=== PATIENT | female | born 1980 | race Caucasian/White ===

== ENCOUNTER 2018-11-13 09:46 | Emergency (ER) | payer OTHER ==
[~2018-11-13] VITALS: Wt 70.0 kg
[~2018-11-13 09:46] MED LIST: PREN-93 PO
[2018-11-13 09:51] VITALS: BP 140/81; PULSE 96; RESP 18
--- NOTE | 2018-11-13 12:25 | ERD ---
ER Documentation Chief Complaint Chief Complaint VAG BLEEDING SINCE THIS MORNING. , NO VOMITING OR DYSURIA HPI Patient is a 37-year-old female, G3, P2, who presents the ER for concerns of vaginal bleeding which started this morning. Patient was seen at the [facility] and advised to come to the ER for further work-up of her symptoms. Patient states she is only used 1 pad thus far. Patient reports bleeding only with wiping. Patient was seen at [facility] and brings previous beta- hCG levels. On 10-31-18, patient's beta hCG was noted to be 50 and on 11-05-18, beta-hCG was noted to be 357. Patient denies any lightheadedness or dizziness. Patient denies any dysuria, fainting, urgency or hematuria. She denies any fevers or chills. ROS All systems reviewed and are negative except as per history of present illness. Medications Home Meds Reported Medications Vit No.124/Iron/FA ( Vitamin Tablet) 1 Each Tablet, 1 EACH PO 04/17/15 Allergies Allergies: Coded Allergies: No Known Allergy (Unverified , 04/17/15) PMhx/Soc Medical and Surgical Hx: pt denies Medical Hx, pt denies Surgical Hx FmHx Family History: No diabetes Physical Exam Vitals Vital Signs Date Temp Pulse Resp B/P (MAP) Pulse Ox O2 O2 Flow FiO2 Time Delivery Rate 11/13/18 98.1 96 18 140/81 100 09:51 (100) Physical Exam GENERAL: Well-developed, well-nourished female. Appears in no acute distress. Speaking in full sentences. HEAD: Normocephalic, atraumatic. EYES: Pupils are equally reactive bilaterally. EOMs grossly intact. No conjunctival erythema. NECK: Supple. No meningismus. Normal range of motion of the neck. LUNG: Clear to auscultation bilaterally. No rhonchi, wheezing, rales or coarse breath sounds. HEART: Regular rate and rhythm. No murmurs, rubs or gallops. ABDOMEN: No scars, ecchymosis or rashes noted. Soft, nontender, and nondistended. Positive bowel sounds in all four quadrants. No rebound tenderness, no guarding. (-) McBurney's point tenderness. No CVA tenderness. EXTREMITIES: Equal pulses bilaterally. No peripheral clubbing, cyanosis or edema. No unilateral leg swelling. NEUROLOGIC: Alert and oriented. Moving all four extremities without any difficulty. Normal speech. Steady gait. SKIN: Normal color. Warm and dry. No rashes or lesions. Result Diagram: 11/13/18 1021 Results 24 hrs Laboratory Tests Test 11/13/18 10:21 11/13/18 10:22 White Blood Count 9.8 10^3/ul Red Blood Count 3.91 10^6/ul Hemoglobin 12.2 g/dl Hematocrit 36.3 % Mean Corpuscular Volume 92.8 fl Mean Corpuscular Hemoglobin 31.2 pg Mean Corpuscular Hemoglobin Concent 33.6 g/dl Red Cell Distribution Width 13.4 % Platelet Count 272 10^3/UL Mean Platelet Volume 9.6 fl Immature Granulocytes % 0.300 % Neutrophils % 74.5 % Lymphocytes % 20.3 % Monocytes % 4.2 % Eosinophils % 0.4 % Basophils % 0.3 % Nucleated Red Blood Cells % 0.0 /100WBC Immature Granulocytes # 0.030 10^3/ul Neutrophils # 7.3 10^3/ul Lymphocytes # 2.0 10^3/ul Monocytes # 0.4 10^3/ul Eosinophils # 0.0 10^3/ul Basophils # 0.0 10^3/ul Nucleated Red Blood Cells # 0.0 10^3/ul Beta HCG, Quantitative 63.0 mIU/ml Urine Color YELLOW Urine Clarity CLEAR Urine pH 8.0 Urine Specific [place] 1.010 Urine Ketones NEGATIVE mg/dL Urine Nitrite NEGATIVE mg/dL Urine Bilirubin NEGATIVE mg/dL Urine Urobilinogen NEGATIVE mg/dL Urine Leukocyte Esterase NEGATIVE Abundio/ul Urine Microscopic RBC > 182 /HPF Urine Microscopic WBC 8 /HPF Urine Squamous Epithelial Cells FEW /HPF Urine Calcium Oxalate Crystals MANY /HPF Urine Bacteria FEW /HPF Urine Mucus FEW /HPF Urine Hemoglobin 3+ mg/dL Urine Glucose NEGATIVE mg/dL Urine Total Protein NEGATIVE mg/dl Procedures/MDM ED COURSE: The patient was stable throughout ED course. I kept the patient and/or family informed of laboratory and diagnostic imaging results throughout the ED course. DIAGNOSTIC IMAGING: Read by radiologist. Patient: ADALID LOPEZ : 1980 Age: 37 Sex: F MR #: [id number] DOS: 11/13/18 1019 Ordering MD: MOUNIKA WOOD PA-C Location: [facility] Room/Bed: PROCEDURE: US Pelvis. CLINICAL INDICATION: vaginal bleeding TECHNIQUE: Multiple sonographic images of the pelvis were obtained utilizing a transabdominal technique. The images were reviewed on a PACS workstation. COMPARISON: None. FINDINGS: The uterus is enlarged in size and demonstrates a normal appearance of the kaitlin metrium. The uterus measures 12.3 x 4.9 x 6.7 cm in size. The endometrial stripe is homogeneous in appearance and has the thickness of 14 mm. No intrauterine gestation is noted. The ovaries are normal in size and echogenicity. Normal Doppler flow is identified in both ovaries. The right ovary measures 2.0 x 1.2 cm. The left ovary measures 2.9 x 1.4 x 2.6 cm. There is a 1.2 cm simple cyst. No free fluid is present within the pelvis.. RPTAT: AA IMPRESSION: No intrauterine gestation visualized. Differential diagnosis includes early , missed or ectopic . Follow-up ultrasound and HCG levels is recommended. .Robson Santillan MD, MD Date Time Electronically viewed and signed by .Robson Santillan MD, MD on 11/13/2018 11:41 .S/ CC: MOUNIKA WOOD PA-C [id number] MEDICAL DECISION MAKING: This is a 37-year-old female, G3, P2, presents the ER for concerns of vaginal bleeding that started this morning. Vital signs were reviewed. Patient was afe brile. Patient was hemodynamically stable. She brings in previous labs from her [facility]. Patient's beta-hCG was noted to be 50 on 10-31-18 and 357 on 11-05-18. Today, patient's beta-hCG was noted to be 63. CBC showed no evidence of severe anemia. Patient's blood type was noted to be O+, no indication for RhoGam at this time. Pelvic ultrasound showed no intrauterine gestation. Upon discussing lab findings as well as ultrasound findings with the patient, patient states that she did pass some tissue while using the restroom. Given this history as well downtrending of patient's beta-hCG, I do feel that patient likely is having a miscarriage. Patient was advised to follow-up with her [facility]ING SERVICES [facility]OCI[facility]. Copy follow-up blood work and imaging studies obtained today was given. Low suspicion for subchorionic hematoma, incomplete , placental abruption, UTI, pyelonephritis, uterine rupture. DISCHARGE: At this time, patient is stable for discharge and outpatient management. I had a conversation at length with the patient about the concerns of vaginal bleeding during the 1st trimester of . Patient and/or family understands that her vaginal bleeding can be a normal finding or a sign of miscarriage. I have instructed the patient to follow-up with her OBGYN in 1-2 days for further monitoring including a repeat b-HCG level. I have instructed the patient to promptly return to the ER at any time for any new or worsening symptoms including increased pain, nausea, vomiting, continued bleeding, weakness, syncope or fever. The patient and/or family expressed understanding of and agreement with this plan. All questions were answered. Home care instructions were provided. Disclaimer: Inadvertent spelling and grammatical errors are likely due to EHR/dictation software use and do not reflect on the overall quality of patient care. Also, please note that the electronic time recorded on this note does not necessarily reflect the actual time of the patient encounter. Departure Diagnosis: Primary Impression: Vaginal bleeding in patient at less than 20 weeks ges... Additional Impression: Miscarriage Condition: Fair Patient Instructions: Bleeding During Early Referrals: HA BAKER (PCP) Additional Instructions: Llame al doctor EARLE y julito odell DIONNA PARA DENTRO DE 1-2 HODGES.Dgale a la secretaria que nosotros le instruimos hacer esta dionna.Avise o llame si olvera condic in se empeora antes de la dionna. Regresa aqui si peor o no mejor. MOUNIKA WOOD PA-C Nov 13, 2018 12:25
== END 2018-11-13 12:25 | disposition home or self-care (01) ==
LOC: FTE 09:46
DX: O03.9 Complete or unspecified spontaneous abortion without complication (principal)
CPT/HCPCS: 36415; 76801; 81001; 84702; 85025; 86900; 86901; Z7502

== ENCOUNTER 2019-01-13 15:27 | Inpatient (IN) | payer OTHER ==
[~2019-01-13] VITALS: Ht 160 cm; Wt 73.4 kg
[~2019-01-13 15:27] MED LIST changes: +HYDR-3601 PO
[2019-01-13 15:29] VITALS: Ht 160 cm; Wt 73.4 kg
[2019-01-13] MEDS ORDERED: ACETAMINOPHEN 500 MG TAB PO STA (16:08)
--- NOTE | 2019-01-13 16:10 | ERD ---
ER Documentation Chief Complaint Chief Complaint PT reports RLQ pain since 4am with loss of appetite HPI History and physical exam and plan of care discussion performed via alarm operator services This is a 38-year-old female patient who presents to emergency room with complaint of sudden onset of right lower quadrant pain starting approximately 4:00 this morning. Patient denies fevers, no nausea, no vomiting, + decreased appetite. Patient states she started her menstrual period 4 days ago. No chronic medical problems. ROS All systems reviewed and are negative except as per history of present illness. Medications Home Meds Reported Medications Vit No.124/Iron/FA ( Vitamin Tablet) 1 Each Tablet, 1 EACH PO 04/17/15 Allergies Allergies: Coded Allergies: No Known Allergy (Unverified , 04/17/15) PMhx/Soc Medical and Surgical Hx: pt denies Medical Hx, pt denies Surgical Hx Hx Alcohol Use: No Hx Substance Use: No Hx Tobacco Use: No Smoking Status: Never smoker Physical Exam Vitals Vital Signs Date Temp Pulse Resp B/P (MAP) Pulse Ox O2 O2 Flow FiO2 Time Delivery Rate 01/13/19 99.1 62 20 165/82 100 15:29 (109) Physical Exam Const: No acute distress Head: Atraumatic Eyes: Normal Conjunctiva, PERRL ENT: Normal External Ears, Nose and Mouth. Pharynx pink, moist, no lesions, no exudate. Neck: Full range of motion. No meningismus. No lymphadenopathy Resp: Clear to auscultation bilaterally, no wheezing, no rhonchi, no rales Cardio: Regular rate and rhythm, no murmurs Abd: Soft, non distended. Normal bowel sounds. +Rebound tenderness RLQ Skin: No petechiae or rashes Back: No midline or flank tenderness, no CVT Ext: No cyanosis, or edema Neur: Awake and alert, clear speech, steady gait Psych: Normal Mood and Affect Result Diagram: 01/13/19 1624 01/13/19 1624 Results 24 hrs Laboratory Tests Test 01/13/19 16:24 White Blood Count 10.3 10^3/ul Red Blood Count 3.70 10^6/ul Hemoglobin 11.4 g/dl Hematocrit 34.3 % Mean Corpuscular Volume 92.7 fl Mean Corpuscular Hemoglobin 30.8 pg Mean Corpuscular Hemoglobin Concent 33.2 g/dl Red Cell Distribution Width 13.1 % Platelet Count 241 10^3/UL Mean Platelet Volume 9.6 fl Immature Granulocytes % 0.100 % Neutrophils % 60.4 % Lymphocytes % 32.8 % Monocytes % 5.0 % Eosinophils % 1.3 % Basophils % 0.4 % Nucleated Red Blood Cells % 0.0 /100WBC Immature Granulocytes # 0.010 10^3/ul Neutrophils # 6.2 10^3/ul Lymphocytes # 3.4 10^3/ul Monocytes # 0.5 10^3/ul Eosinophils # 0.1 10^3/ul Basophils # 0.0 10^3/ul Nucleated Red Blood Cells # 0.0 10^3/ul Urine Color STRAW Urine Clarity CLEAR Urine pH 6.0 Urine Specific [place] 1.010 Urine Ketones NEGATIVE mg/dL Urine Nitrite NEGATIVE mg/dL Urine Bilirubin NEGATIVE mg/dL Urine Urobilinogen NEGATIVE mg/dL Urine Leukocyte Esterase NEGATIVE Abundio/ul Urine Microscopic RBC 0 /HPF Urine Microscopic WBC 1 /HPF Urine Hemoglobin 3+ mg/dL Urine Glucose NEGATIVE mg/dL Urine Total Protein NEGATIVE mg/dl Urine Test NEGATIVE Sodium Level 141 mmol/L Potassium Level 3.7 mmol/L Chloride Level 102 mmol/L Carbon Dioxide Level 31 mmol/L Anion Gap 8 Blood Urea Nitrogen 13 mg/dl Creatinine 0.77 mg/dl Est Glomerular Filtrat Rate mL/min > 60 mL/min Glucose Level 95 mg/dl Calcium Level 9.4 mg/dl Total Bilirubin 0.4 mg/dl Direct Bilirubin 0.00 mg/dl Indirect Bilirubin 0.4 mg/dl Aspartate Amino Transf (AST/SGOT) 21 IU/L Alanine Aminotransferase (ALT/SGPT) 18 IU/L Alkaline Phosphatase 86 IU/L Total Protein 7.4 g/dl Albumin 4.2 g/dl Globulin 3.20 g/dl Albumin/Globulin Ratio 1.31 Lipase 64 U/L Current Medications Medications Dose Sig/Yasmine Start Time Status Last (Trade) Ordered Route PRN Stop Time Admin Dose Reason Admin 1,000 mg ONCE STAT 01/13/19 DC 01/13/19 Acetaminophen PO 16:08 01/13/19 16:25 (Tylenol 16:10 Tab) IV Flush 10 ml STK-MED 01/13/19 DC (NS 10 ml) ONCE .ROUTE 18:20 01/13/19 18:21 Sodium 100 ml @ ud STK-MED 01/13/19 DC Chloride ONCE .ROUTE 18:20 01/13/19 18:21 Iohexol 150 ml STK-MED 01/13/19 DC (Omnipaque ONCE .ROUTE 18:20 01/13/19 300mg/ ml) 18:21 Procedures/MDM PROCEDURES/MDM DIAGNOSTIC IMAGING: Read by radiologist. CT ABD/PELVIS IMPRESSION: 1. NO EVIDENCE OF BOWEL OBSTRUCTION. THE APPENDIX IS MILDLY PROMINENT WITH QUESTIONABLE ADJACENT FATTY STRANDING. FINDINGS MAY REPRESENT EARLY OR MILD APPENDICITIS. CORRELATE WITH CLINICAL FINDINGS. 2. No evidence of bowel obstruction. 3. Fat-containing a umbilical hernia. 4. Fluid within the endometrial canal and cervix, which can be physiologic within normal limits. No significant free fluid. No significant pelvic lymphadenopathy. No gross CT evidence of gross adnexal masses or torsion. LAB INTERPRETATION: No leukocytosis, no anemia, no electrolyte imbalance, normal kidney function, no hyper or hypoglycemia, no transaminitis, no pancreatitis. Urine without leukocyte esterase or nitrites. +hemoglobin- pt is on menstrual period -Medications: Tylenol Patient tolerated medication well with no adverse reactions. Patient reported improvement in pain. MDM: This is a 38-year-old female patient who presents emergency room with complaint of right lower quadrant tenderness since this morning, CT scan suggestive of appendicitis. Case discussed with Dr. Rosenbaum who evaluated patient at bedside and will assume care of patient for admission and surgical consult. DISPOSITION and PLAN: Admit for treatment and surgical consult Departure Diagnosis: Primary Impression: Appendicitis Appendicitis type: acute appendicitis Condition: Stable WALTER PRIETO NP Jan 13, 2019 16:10
[2019-01-13] MEDS ORDERED: IOHEXOL 300MG/ML 150 ML BTL ONE (18:20)
[2019-01-13] MEDS ORDERED: SOD CHLORIDE 0.9% 100 ML ONE (18:20)
[2019-01-13] MEDS ORDERED: SOD CHLORIDE 0.9% 1,000 ML IV STA (19:58)
[2019-01-13] MEDS ORDERED: PIPER-TAZO 3.375 GM IV (PMX) 100 ML IVPB ONE (20:00)
--- NOTE | 2019-01-13 20:39 | EN ---
Date/Time of Note Date/Time of Note DATE: 01/13/19 TIME: 20:37 ER Progress Note The patient was signed out to me by Dr Rodriguez at 8p, who already notified the three dimensional art instructor surgeon Dr Duenas because she has acute appendicitis. We are waiting for [facility] to authorize the admission May[facility] authorized the admission I discussed the findings with the patient. I notified the patient with Dr. Ruiz at 8:30p via [employer], who was made aware of the lab, the treatment, the patient condition. The patient is admitted to [facility] Disclaimer: Inadvertent spelling and grammatical errors are likely due to EHR/dictation software use and do not reflect on the overall quality of patient care. Also, please note that the electronic time recorded on this note does not necessarily reflect the actual time of the patient encounter. LENARD QURESHI MD Jan 13, 2019 20:39
[2019-01-13] MEDS ORDERED: ONDANSETRON 4 MG INJ IV PRN (21:00)
[2019-01-13] MEDS ORDERED: DOCUSATE SODIUM 100 MG CAP PO PRN (21:00)
[2019-01-13] MEDS ORDERED: ACETAMINOPHEN 325 MG TAB PO PRN (21:00)
[2019-01-13] MEDS ORDERED: NACL 0.9% 3 ML SYG IV SCH (21:00)
[2019-01-13] MEDS: D5-NS + KCL 20 MEQ 1,000 ML IV SCH (21:39)
[2019-01-13] MEDS: FAMOTIDINE 20 MG INJ IV SCH (21:39)
[2019-01-13 22:12] VITALS: BP 139/75; PULSE 57; RESP 17
[2019-01-14] VITALS (12 sets, daily range): BP systolic 108–145; BP diastolic 68–86; PULSE 58–84; RESP 12–20
[2019-01-14] MEDS: D5-NS + KCL 20 MEQ 1,000 ML IV SCH ×2 (05:31→17:00)
[2019-01-14] MEDS ORDERED: ACETAMINOPHEN 1000MG/100ML IV 100 ML IVPB PRN (08:30)
[2019-01-14] MEDS: FAMOTIDINE 20 MG INJ IV SCH ×2 (10:46→21:44)
--- NOTE | 2019-01-14 12:47 | CONS ---
Assessment/Plan Assessment/Plan Hospital Course (Demo Recall) 1. Abdominal pain with possible early appendicitis: -surgery offered to patient, she will discuss with family and give us her decision -abx -pain mgt -npo 2. Ventral hermia: asymptomatic -monitor -sx intervention can be considered if becomes symptomatice 3. Overweight: bmi 29 -diet and exercise optimization -encourage weight loss Thank you. Patient seen and examined in collaboration with Dr. Dale Duenas. Consultation Date/Type/Reason Admit Date/Time Jan 13, 2019 at 20:40 Date of Consultation: Jan 14, 2019 Type of Consult surgical Reason for Consultation abd pain, appendicitis Requesting Provider: A Date/Time of Note DATE: 01/14/19 TIME: 12:37 Hx of Present Illness Tasia Swain is a 38 yo woman without significant pmh who presented with abdominal pain. Pain is predominantly in the right lower quadrant, strong and persistent in nature. She denies associated fevers, chills, congested cough, cp, palpitations, nausea, vomiting, diarrhea, change in bowel or bladder habits, skin changes or neuro symptoms. CT abdomen noted mildly prominent appendix with questionable fatty stranding. Laboratory findings were unremarkable. General surgery was asked to evaluate. 12 point ros was reviewed and is negative except as stated in hpi. Past Medical History overweight Home Meds Discontinued Reported Medications Vit No.124/Iron/FA ( Vitamin Tablet) 1 Each Tablet, 1 EACH PO 04/17/15 Medications Current Medications IV Flush (NS 3 ml) 3 ml PER PROTOCOL IV ; Start 01/13/19 at 21:00 Ondansetron HCl (Zofran Inj) 4 mg Q6H PRN IV NAUSEA/VOMITING; Start 01/13/19 at 21:00 Acetaminophen (Tylenol Tab) 650 mg Q6H PRN PO .PAIN 1-3 OR TEMP; Start 01/13/19 at 21:00 Morphine Sulfate (morphine) 2 mg Q4H PRN IV .SEVERE PAIN 7-10; Start 01/13/19 at 21:00 Docusate Sodium (Colace) 100 mg Q12H PRN PO .CONSTIPATION; Start 01/13/19 at 2 1:00 Famotidine (Pepcid Iv) 20 mg Q12 IV Last administered on 01/14/19at 10:46; Admin Dose 20 MG; Start 01/13/19 at 21:00 Potassium Chloride/Dextrose/ Sod Cl 1,000 ml @ 100 mls/hr Q10H IV Last adminis tered on 01/14/19at 05:31; Admin Dose 100 MLS/HR; Start 01/13/19 at 21:00 Acetaminophen 100 ml @ 400 mls/hr Q6H PRN IVPB PAIN Last administered on 01/14/19at 10:46; Admin Dose 400 MLS/HR; Start 01/14/19 at 08:30; Stop 01/15/19 at 08:29 Allergies: Coded Allergies: No Known Allergy (Unverified , 01/13/19) Past Surgical History Past Surgical Hx: no surgical history Family History Significant Family History: no pertinent family hx Social History Alcohol Use: none Smoking Status: Never smoker Drug Use: none Exam/Review of Systems Exam Vitals Vital Signs Date Temp Pulse Resp B/P (MAP) Pulse Ox O2 O2 Flow FiO2 Time Delivery Rate 01/14/19 98.6 80 20 112/74 96 08:00 (87) 01/14/19 Room Air 02:07 Intake and Output 01/13/19 01/13/19 01/14/19 1515:00 23:00 07:00 IntakeIntake Total 1100 ml 900 ml BalanceBalance 1100 ml 900 ml Constitutional: alert, oriented, well developed Psych: nl mood/affect; No anxiety Head: normocephalic, atraumatic Eyes: nl conjunctiva, EOMI, nl lids, nl sclera ENMT: nl external ears & nose, nl lips & teeth, mucosa pink and moist Neck: supple, non-tender; No jvd Respiratory: normal air movement; No congested cough Cardiovascular: regular rate and rhythm Gastrointestinal: soft, distended (MIN), tender (RLQ), other (umbilical hernia: nontender, no skin disoloration); No firm, No rebound or guarding Musculoskeletal: nl extremities to inspection, nl gait and stance Extremities: normal pulses Neurological: nl mental status, nl speech, nl strength Skin: nl turgor; No rash or lesions Lymph: nl lymph nodes Results Result Diagram: 01/14/19 0613 01/14/19 0613 Results 24hrs Laboratory Tests Test 01/13/19 16:24 01/14/19 06:13 White Blood Count 10.3 5.3 # Red Blood Count 3.70 L 3.66 L Hemoglobin 11.4 L 11.0 L Hematocrit 34.3 L 34.2 L Mean Corpuscular Volume 92.7 93.4 Mean Corpuscular Hemoglobin 30.8 30.1 Mean Corpuscular Hemoglobin Concent 33.2 32.2 Red Cell Distribution Width 13.1 13.2 Platelet Count 241 242 Mean Platelet Volume 9.6 10.2 Immature Granulocytes % 0.100 0.200 Neutrophils % 60.4 49.4 Lymphocytes % 32.8 41.3 Monocytes % 5.0 6.0 Eosinophils % 1.3 2.5 Basophils % 0.4 0.6 Nucleated Red Blood Cells % 0.0 0.0 Immature Granulocytes # 0.010 0.010 Neutrophils # 6.2 2.6 Lymphocytes # 3.4 H 2.2 Monocytes # 0.5 0.3 Eosinophils # 0.1 0.1 Basophils # 0.0 0.0 Nucleated Red Blood Cells # 0.0 0.0 Urine Color STRAW Urine Clarity CLEAR Urine pH 6.0 Urine Specific [place] 1.010 Urine Ketones NEGATIVE Urine Nitrite NEGATIVE Urine Bilirubin NEGATIVE Urine Urobilinogen NEGATIVE Urine Leukocyte Esterase NEGATIVE Urine Microscopic RBC 0 Urine Microscopic WBC 1 Urine Hemoglobin 3+ H Urine Glucose NEGATIVE Urine Total Protein NEGATIVE Urine Test NEGATIVE Sodium Level 141 140 Potassium Level 3.7 3.4 L Chloride Level 102 108 Carbon Dioxide Level 31 28 Anion Gap 8 4 L Blood Urea Nitrogen 13 8 Creatinine 0.77 0.62 Est Glomerular Filtrat Rate mL/min > 60 > 60 Glucose Level 95 103 Calcium Level 9.4 8.5 Total Bilirubin 0.4 Direct Bilirubin 0.00 Indirect Bilirubin 0.4 Aspartate Amino Transf (AST/SGOT) 21 Alanine Aminotransferase (ALT/SGPT) 18 Alkaline Phosphatase 86 Total Protein 7.4 Albumin 4.2 Globulin 3.20 Albumin/Globulin Ratio 1.31 Lipase 64 Prothrombin Time 14.2 Prothrombin Time Ratio 1.1 INR International Normalized Ratio 1.09 Activated Partial Thromboplast Time 37.9 H Hemoglobin A1c 5.2 Free Thyroxine Index 2.31 Thyroxine (T4) 6.4 Triiodothyronine (T3) Uptake 36.1 Medications Medication Current Medications IV Flush (NS 3 ml) 3 ml PER PROTOCOL IV ; Start 01/13/19 at 21:00 Ondansetron HCl (Zofran Inj) 4 mg Q6H PRN IV NAUSEA/VOMITING; Start 01/13/19 at 21:00 Acetaminophen (Tylenol Tab) 650 mg Q6H PRN PO .PAIN 1-3 OR TEMP; Start 01/13/19 at 21:00 Morphine Sulfate (morphine) 2 mg Q4H PRN IV .SEVERE PAIN 7-10; Start 01/13/19 at 21:00 Docusate Sodium (Colace) 100 mg Q12H PRN PO .CONSTIPATION; Start 01/13/19 at 21:00 Famotidine (Pepcid Iv) 20 mg Q12 IV Last administered on 01/14/19at 10:46; Admin Dose 20 MG; Start 01/13/19 at 21:00 Potassium Chloride/Dextrose/ Sod Cl 1,000 ml @ 100 mls/hr Q10H IV Last administered on 01/14/19at 05:31; Admin Dose 100 MLS/HR; Start 01/13/19 at 21:00 Acetaminophen 100 ml @ 400 mls/hr Q6H PRN IVPB PAIN Last administered on 9at 10:46; Admin Dose 400 MLS/HR; Start 01/14/19 at 08:30; Stop 01/15/19 at 08:29 KYLEE ANDERSON NP Jan 14, 2019 12:47
--- NOTE | 2019-01-14 13:42 | HP ---
DATE OF ADMISSION: 01/13/2019 CHIEF COMPLAINT: Abdominal pain. HISTORY OF PRESENT ILLNESS: A 38-year-old female with unremarkable past medical history who presented to the emergency room with sudden onset of right lower quadrant abdominal pain which start ed about 4:00 in the morning. The patient denies any nausea or vomiting. No fevers or chills. No h ematemesis. No prior red blood per rectum or melena. The patient started her menstrual period 4 day s prior to admission. Initial evaluation included a CAT scan of the abdomen and pelvis. There was no evidence of bowel obs truction. However, the appendix was mildly prominent with questionable adjacent fatty stranding. Th is was suspicious for early or mild appendicitis. There was fluid within the endometrial canal and c ervix. LABORATORY DATA: White blood cell count on admission was 10.3 and repeat WBC was 5.3. BMP and LFTs were normal. PAST MEDICAL HISTORY: None. PAST SURGICAL HISTORY: None. SOCIAL HISTORY: Patient lives at home. She denies tobacco or alcohol use. PHYSICAL EXAMINATION: GENERAL: Well-developed, well-nourished female who is in no apparent distress. VITAL SIGNS: Stable. She is afebrile. HEENT: Extraocular muscles intact. Pupils equal and reactive to light bilaterally. Sclerae are ani cteric. Oropharynx is clear and moist. NECK: Supple, no JVD, no carotid bruits. LUNGS: Clear to auscultation bilaterally. CARDIAC: Regular rate and rhythm. No murmurs, rubs or gallops. ABDOMEN: Soft. Right lower quadrant tenderness to palpation with mild rebound. Normoactive bowel s ounds. EXTREMITIES: No clubbing, cyanosis, or edema. NEUROLOGICAL: Nonfocal. ASSESSMENT: A 38-year-old female presenting with acute onset right lower quadrant abdominal pain. F indings are suggestive of early, mild appendicitis. PLAN: 1. Admit to med/surg. 2. N.p.o. 3. Pain control. 4. IV fluid hydration. 5. Surgical consultation was requested. We will await evaluation by Dr. Kearney. Dictated By: JENNIFER MOONEY MD SK/NTS Conf#: [id number] DID#: [id number] CC: VIGNESH WU MD; VINH KEARNEY MD;*End*
[2019-01-14] MEDS ORDERED: LIDOCAINE 1%/EPI 30 ML INJ ONE (14:24)
[2019-01-14] MEDS ORDERED: BUPIVACAINE 0.25% (MPF) 30 ML INJ ONE (14:24)
--- NOTE | 2019-01-14 14:47 | PREAC ---
Date/Time of Note Date/Time of Note DATE: 01/14/19 TIME: 14:45 Anesthesia Eval and Record Evaluation Time Pre-Procedure Interview DATE: 01/14/19 TIME: 14:45 Age 38 Sex female NPO: 8 hrs Preoperative diagnosis acute appendicitis Planned procedure Lap appendectomy Past Medical History Past Medical History: Includes GI: Obesity Surgery & Anesthesia Issues No known issue Meds Anticoagulation: No Beta Adelfo within 24 hr: No Reason Beta Adelfo not given: Pt. not on B-Adelfo Discontinued Reported Medications Vit No.124/Iron/FA ( Vitamin Tablet) 1 Each Tablet, 1 EACH PO 04/17/15 Current Medications IV Flush (NS 3 ml) 3 ml PER PROTOCOL IV ; Start 01/13/19 at 21:00 Ondansetron HCl (Zofran Inj) 4 mg Q6H PRN IV NAUSEA/VOMITING; Start 01/13/19 at 21:00 Acetaminophen (Tylenol Tab) 650 mg Q6H PRN PO .PAIN 1-3 OR TEMP; Start 01/13/19 at 21:00 Morphine Sulfate (morphine) 2 mg Q4H PRN IV .SEVERE PAIN 7-10; Start 01/13/19 at 21:00 Docusate Sodium (Colace) 100 mg Q12H PRN PO .CONSTIPATION; Start 01/13/19 at 21:00 Famotidine (Pepcid Iv) 20 mg Q12 IV Last administered on 01/14/19at 10:46; Admin Dose 20 MG; Start 01/13/19 at 21:00 Potassium Chloride/Dextrose/ Sod Cl 1,000 ml @ 100 mls/hr Q10H IV Last administered on 01/14/19at 05:31; Admin Dose 100 MLS/HR; Start 01/13/19 at 21:00 Acetaminophen 100 ml @ 400 mls/hr Q6H PRN IVPB PAIN Last administered on 01/14/19at 10:46; Admin Dose 400 MLS/HR; Start 01/14/19 at 08:30; Stop 01/15/19 at 08:29 Meds reviewed: Yes Allergies Coded Allergies: No Known Allergy (Unverified , 01/13/19) Allergies Reviewed: Yes Labs/Studies Labs Reviewed: Reviewed by anesthesiologist Result Diagram: 01/14/19 0613 01/14/19 0613 Laboratory Tests 01/14/19 06:13 test: Negative Studies: ECG Pre-procedure Exam Last vitals Vital Signs Date Temp Pulse Resp B/P (MAP) Pulse Ox O2 O2 Flow FiO2 Time Delivery Rate 01/14/19 97.8 61 18 121/69 Room Air 13:50 (86) 01/14/19 96 08:00 Airway: Adequate mouth opening, Adequate thyromental dist Mallampati: Mallampati II Teeth: Normal Lung: Normal Heart: Normal ASA Physical Status ASA physical status: 2 Emergency: E Planned Anesthetic General/MAC: ETT Planned Pain Management Single shot nerve block, Parenteral pain med, Local by surgeon Pre-operative Attestations Prior to commencing anesthesia and surgery, the patient was re-evaluated, there was verification of: *The patient's identity *The results of appropriate recent lab work and preoperative vital signs *The above evaluation not changing prior to induction *Anesthetic plan, risk benefits, alternative and complications discussed with patient/family; questions answered; patient/family understands, accepts and wishes to proceed. MARCO FIGUEROA MD Jan 14, 2019 14:47
[2019-01-14] MEDS ORDERED: MIDAZOLAM 1 MG/ML 2 ML INJ ONE (14:59)
[2019-01-14] MEDS ORDERED: ONDANSETRON 4 MG INJ ONE (16:05)
[2019-01-14] MEDS ORDERED: ROCURONIUM 50 MG INJ ONE (16:08)
[2019-01-14] MEDS ORDERED: PROPOFOL 20 ML ONE (16:08)
[2019-01-14] MEDS ORDERED: GLYCOPYRROLATE 0.4 MG INJ ONE (16:08)
[2019-01-14] MEDS ORDERED: NEOSTIGMINE 3 MG/3 ML SYRINGE ONE (16:08)
[2019-01-14] MEDS ORDERED: metroNIDAZOLE 500 MG/NS (PMX) 100 ML IVPB ONE (16:08)
[2019-01-14] MEDS ORDERED: LIDOCAINE 2% (SDV) 5 ML INJ ONE (16:08)
[2019-01-14] MEDS ORDERED: CEFAZOLIN 1 GM INJ ONE (16:08)
[2019-01-14] MEDS ORDERED: HYDROCODONE/APAP (5/325) TAB PO PRN (16:30)
[2019-01-14] MEDS ORDERED: HYDROmorphONE 0.5 MG/0.5 ML SYG IV PRN (16:30)
[2019-01-14] MEDS ORDERED: IBUPROFEN 800 MG TAB PO PRN (16:30)
[2019-01-14] MEDS ORDERED: ONDANSETRON 4 MG INJ IV PRN ×2 (16:30→17:00)
--- NOTE | 2019-01-14 16:34 | OPR ---
Date/Time of Note Date/Time of Note DATE: 01/14/19 TIME: 16:29 Operative Report Free Text/Dictation Preoperative Diagnosis 1. Acute appendicitis 2. Ventral hernia 3. BMI 29 Postoperative Diagnosis 1. Acute appendicitis 2. Ventral hernia 3. BMI 29 4. Bilateral inguinal hernias 5. Right obturator hernia Operation Performed 1. Laparoscopic appendectomy 2. Ventral primary hernia repair 3. Local anesthetic [place], [address] 4. Laparoscopic guided bilateral transversus abdominis plane block Surgeon: VINH KEARNEY MD General Counselor: Kalpana Cope NP Anesthesia: general (Plus local plus regional) Anesthesiologist: Crispin Davis MD Estimated Blood Loss: 10 mL ml's Specimens: Appendix Tubes/Drains None Complications: None Pt Condition Post Procedure: stable Disposition: PACU Indications: Per consult note. Risks include but are not limited to bleeding, infection, abscess, seroma, leak, damage to intestines or any intra-abdominal/intrapelvic structures, hernia formation, chronic pain, need for re-operations or further surgeries, MD, stroke, PE, DVT, pneumonia, organ failures, or even . Procedure Note: Patient was brought into the operating room, placed supine on the operating table, SCDs were placed, left arm was tucked, all pressure points were well- padded, preoperative antibiotics administered, and after induction of anesthesia, patient was prepped and draped in usual sterile fashion, and timeout was performed. Incision was made supraumbilically and through the ventral hernia abdomen was entered and abdomen was insufflated to 15 mmHg with CO2. A 12 mm port was applied. Laparoscopy was performed and no injuries were identified using a 5 mm 30 scope. Under direct visualization another 5 mm port was placed and left lower quadrant and another 5 mm port and suprapubic region avoiding the bladder. Patient has bilateral inguinal hernias are small and also with deep right obturator hernia. All incision sites were injected with quarter percent Marcaine with 1% lidocaine with epi. Bilateral transversus abdominis plane block was performed under laparoscopic visualization to aid with pain control intra-and postoperatively. Patient was placed in Trendelenburg and right side up. The appendix was found to be minimally inflamed. The base was transected using [employer] TIFFANIE white load automatic 35 mm stapler just on the cecum. The joanna were fired fully. The mesoappendix was transected with another white load stapler. Hemostasis was fully obtained. The appendix was placed in an Endo Catch bag and removed through the hernia site. That fascia was closed with Endo Close and 0 Vicryl in a [id number] manner avoiding the bladder. Ports and CO2 were removed under direct visualization, wounds were fully irrigated, and skin was closed in subcuticular fashion using 4-0 Monocryl. Dermabond was applied. All counts were correct and the end of the operation 2. Patient was extubated and transferred to recovery room in stable condition. VINH KEARNEY MD Jan 14, 2019 16:34
--- NOTE | 2019-01-14 16:37 | PAC ---
Date/Time of Note Date/Time of Note DATE: 01/14/19 TIME: 16:36 Post-Anesthesia Notes Post-Anesthesia Note Last documented vital signs Vital Signs Date Temp Pulse Resp B/P (MAP) Pulse Ox O2 O2 Flow FiO2 Time Delivery Rate 01/14/19 98.6 61 18 121/79 96 14:00 (93) 01/14/19 Room Air 13:50 Activity: WNL Respiratory function: WNL Cardiovascular function: WNL Mental status: Baseline Pain reasonably controlled: Yes Hydration appropriate: Yes Nausea/Vomiting absent: Yes Comments BP:120/67, P:78, Spo2:100%, T:98,8 MARCO FIGUEROA MD Jan 14, 2019 16:37
[2019-01-14] MEDS ORDERED: FENTAnyl 50 MCG/ML VIAL IV PRN (17:00)
[2019-01-14] MEDS ORDERED: HYDROmorphONE 1 MG/5 ML IV SYRINGE IV PRN ×2 (17:00)
[2019-01-14] MEDS ORDERED: KETOROLAC 30 MG INJ IV PRN (17:00)
[2019-01-14] MEDS ORDERED: DIPHENHYDRAMINE 50 MG INJ IV PRN (17:00)
[2019-01-14] MEDS ORDERED: METOCLOPRAMIDE 10 MG INJ IV PRN (17:00)
[2019-01-14] MEDS ORDERED: MEPERIDINE 25 MG INJ IV PRN (17:00)
[2019-01-14] MEDS: morphine 2 MG INJ IV PRN (20:03)
[2019-01-15] MEDS: morphine 2 MG INJ IV PRN ×3 (01:37→10:55)
[2019-01-15 02:00] VITALS: BP 108/66; PULSE 79; RESP 17
[2019-01-15 08:00] VITALS: BP_SYST 131; BP_SYST 132; BP_DIAS 76; BP_DIAS 80; PULSE 76; PULSE 88; RESP 18; RESP 20
[2019-01-15] MEDS: FAMOTIDINE 20 MG INJ IV SCH (08:30)
--- NOTE | 2019-01-15 09:19 | PN ---
Date/Time of Note Date/Time of Note DATE: 01/15/19 TIME: 09:16 Assessment/Plan Lines/Catheters IV Catheter Type (from Nrs): Peripheral IV Assessment/Plan Chief Complaint/Hosp Course 1. Acute appendicitis : Status post laparoscopic appendectomy and ventral primary hernia repair 01/14/2019 -IS -ambulate -ice pack to abdominal wall -advance diet as tolerated -DC okay from surgical standpoint with follow-up in office in 2 weeks 2. Ventral hermia: Status post ventral hernia repair -Avoid heavy lifting 3. Overweight: bmi 29 -diet and exercise optimization -encourage weight loss Thank you. Patient seen and examined in collaboration with Dr. Dale Duenas. Subjective 24 Hr Interval Summary Feels well. Some abdominal discomfort however original pain that she presented with is now resolved. No fevers, chills, sob, congested cough, cp, palpitations , ramey, dizziness, nausea, vomiting, diarrhea, dysuria. Exam/Review of Systems Vital Signs Vitals Vital Signs Date Temp Pulse Resp B/P (MAP) Pulse Ox O2 O2 Flow FiO2 Time Delivery Rate 01/15/19 98.6 88 20 132/76 96 08:00 (94) 01/15/19 Room Air 02:00 01/14/19 5.0 16:40 Intake and Output 01/14/19 01/14/19 01/15/19 1515:00 23:00 07:00 IntakeIntake Total 800 ml 1000 ml OutputOutput Total 10 ml BalanceBalance 800 ml 990 ml Exam Free Text/Dictation Constitutional: alert, oriented, well developed Psych: nl mood/affect; No anxiety Head: normocephalic, atraumatic Eyes: nl conjunctiva, EOMI, nl lids, nl sclera ENMT: nl external ears & nose, nl lips & teeth, mucosa pink and moist Neck: supple, non-tender; No jvd Respiratory: normal air movement; No congested cough Cardiovascular: regular rate and rhythm Gastrointestinal: soft, distended (MIN), tender (justin-incisional, incision sites dry without drainage/discoloration/bruising; umbilical hernia repaired); No firm, No rebound or guarding Musculoskeletal: nl extremities to inspection, nl gait and stance Extremities: normal pulses Neurological: nl mental status, nl speech, nl strength Skin: nl turgor; No rash or lesions Lymph: nl lymph nodes Results Result Diagram: 01/14/19 0613 01/14/19 0613 KYLEE ANDERSON NP Jan 15, 2019 09:19
--- NOTE | 2019-01-15 11:06 | PDOCDIS ---
Discharge Instructions CONDITION [id number] Patient Condition: [id number] Good HOME CARE INSTRUCTIONS: [id number] Diet Instructions: [id number] Low Fat /Cholesterol ACTIVITY: [id number] Activity Restrictions: [id number] Slowly Increase Activity Avoid heavy lifting FOLLOW UP/APPOINTMENTS Follow-up Plan pcp [address] Duenas 1 week JENNIFER MOONEY MD Jan 15, 2019 11:06
[2019-01-15 14:00] VITALS: BP 128/62; PULSE 76; RESP 18
--- NOTE | 2019-01-15 20:07 | DS ---
DATE OF ADMISSION: 01/13/2019 DATE OF DISCHARGE: 01/15/2019 DISCHARGE DIAGNOSES: 1. A 38-year-old female with acute appendicitis. 2. Status post laparoscopic appendectomy. 3. Ventral hernia. 4. Status post laparoscopic ventral hernia repair. 5. Bilateral inguinal hernias. 6. Right obturator hernia. 7. Moderate obesity. HOSPITAL COURSE: A 38-year-old female presented to emergency room with sudden onset of righ t lower quadrant abdominal pain. Initial evaluation revealed evidence of early and mild appendicitis . The patient was seen in consultation by Dr. Kearney. She was taken to the operating room and unde rwent laparoscopic appendectomy for acute appendicitis. She was also found to have a ventral hernia and underwent repair. The patient was also found to have bilateral inguinal hernias and right obtura tor hernia. She is moderately obese. The patient was started on a clear liquid diet which was well tolerated. She is in a stable condition for discharge to home. Her diet will be advanced slowly. T he patient will follow up with PCP and Dr. Kearney in 1 week. MEDICATIONS ON DISCHARGE: [place] 5/325 one every 4 hours as needed. FOLLOWUP: 1. Follow up with PCP in 1 week. 2. Follow up with Dr. Kearney in 1 week. DISCHARGE INSTRUCTIONS: No heavy lifting at work for 10-days. Dictated By: JENNIFER VILLAREAL/NTS Conf#: [id number] DID#: [id number] CC: VINH KEARNEY MD; VIGNESH WU MD;*End*
== END 2019-01-15 18:19 | disposition home or self-care (01) | DRG 343 ==
LOC: FTE 15:27 → PP2 20:40
PROVIDERS: ADMIT Internal Medicine; ATTEND Internal Medicine
PROC: 0WQF4ZZ Repair Abdominal Wall, Percutaneous Endoscopic Approach (ICD-10-PCS; 2019-01-14)
PROC: 0DTJ4ZZ Resection of Appendix, Percutaneous Endoscopic Approach (ICD-10-PCS; principal; 2019-01-14 13:30)
DX: K35.80 Unspecified acute appendicitis (principal); E66.9 Obesity, unspecified; Z68.28 Body mass index [BMI] 28.0-28.9, adult
CPT/HCPCS: 36415; 74177; 80048; 80053; 81001; 83036; 83690; 84436; 84479; 84703; 85025; 85610; 85730; 88304; 96365; J0131; J0690; J2250; J2270; J2405; J2543; J2710; J3010; J3480; J7030; Q9967